=== PATIENT | female | born 1980 | race African-American/Black ===

== ENCOUNTER → 2018-04-29 | Outpatient (CLI) | payer MEDICAID ==
[~2018-04-29] MED LIST: ALPR0.5T3 PO; LEVO75TA3 PO; LISI-372 PO; PROZ20CA11 PO; SERO200T PO; TRAM50TA PO; WELL150T PO
--- NOTE | 2018-04-30 11:26 | EKG ---
Date Performed: 04/29/2018 Time Performed: 13:47:16 PTAGE: 37 years EKG: Sinus rhythm . Septal T wave changes are nonspecific Borderline ECG PREVIOUS TRACING : 09/20/2014 09.39 No significant change from previous tracing noted. DOCTOR: Geronimo Sanchez Interpretating Date/Time 04/30/2018 11:24:19
== END ==
LOC: HCAV 13:33
PROVIDERS: ATTEND Psychiatry & Neurology Child & Adolescent Psychiatry
DX: F40.01 Agoraphobia with panic disorder (principal); F33.1 Major depressive disorder, recurrent, moderate; F41.1 Generalized anxiety disorder; F43.11 Post-traumatic stress disorder, acute; R94.31 Abnormal electrocardiogram [ECG] [EKG]
CPT/HCPCS: 93005